=== PATIENT | male | born 1970 | race Caucasian/White ===

== ENCOUNTER 2017-07-03 20:07 | Emergency (ER) | payer OTHER, MEDICAID ==
[~2017-07-03] VITALS: Ht 180.3 cm; Wt 77.6 kg
[2017-07-03 20:20] VITALS: BP 125/75
== END 2017-07-04 00:12 | disposition left against medical advice (07) ==
LOC: ER 20:07
DX: M54.9 Dorsalgia, unspecified (principal); G89.29 Other chronic pain; Z53.21 Procedure and treatment not carried out due to patient leaving prior to being seen by health care provider

== ENCOUNTER 2018-06-10 10:31 | Emergency (ER) | payer OTHER, MEDICAID ==
[~2018-06-10] VITALS: Ht 180.3 cm; Wt 71.7 kg
[2018-06-10 11:36] LABS: Basophils # (auto) 0 uL; Basophils % (auto) 1.1 % (0.0-2.0); Eosinophils # (auto) 0 uL; Hematocrit 48.5 % (41.0-53.0); Hemoglobin 16.5 g/dL (13.5-17.5); Lymphocytes # (auto) 0.5 uL; Lymphocytes % (auto) 13.9 % (10.0-50.0); Mean Corpuscular Hemoglobin 31.7 pg (28.0-32.0); Mean Corpuscular Hgb Conc. 34.1 g/dL (32.0-36.0); Mean Corpuscular Volume 93.2 fL (80.0-100.0); Monocytes # (auto) 0.1 uL; Monocytes % (auto) 4.3 % (0.0-12.0); Neutrophils # (auto) 2.6 uL; Neutrophils % (auto) 79.7 % (37.0-80.0); Nucleated Red Blood Cells % 0.4 %; Platelet Count (auto) 194 10^3/uL (140-450); Red Blood Cells 5.21 10^6/uL (4.5-5.90); Red Cell Distribution Width 14.7 % (11.8-14.3); White Blood Cell 3.3 10^3/uL (4.4-10.8)
[2018-06-10 11:47] LABS: Albumin 4.5 g/dL (3.4-5.0); Anion Gap 7 (5-15); Blood Urea Nitrogen 7 mg/dL (7-18); Calcium 9.2 mg/dL (8.5-10.1); Carbon Dioxide 30 mmol/L (21-32); Chloride 100 mmol/L (98-107); Glucose 101 mg/dL (74-106); Potassium 4.3 mmol/L (3.5-5.1); Sodium 137 mmol/L (136-145)
[2018-06-10] MEDS ORDERED: SODIUM CHLORIDE 0.9% 1,000 ML IV ONE (12:04)
[2018-06-10 12:05] LABS: Alanine Aminotransferase 24 U/L (16-61); Alkaline Phosphatase 41 U/L (45-117); Aspartate Aminotransferase 23 U/L (15-37); BUN/Creatinine Ratio 7.5; Bilirubin, Total 0.4 mg/dL (0.2-1.0); GFR African American 112 mL/min; GFR Non-African American 93 mL/min; Total Protein 8.7 g/dL (6.4-8.2)
[2018-06-10 12:58] LABS: Alcohol, Urine < 3.0 mg/dL (0-5); Amphetamine Screen, Urine POSITIVE (NEGATIVE); Barbiturate Scree,Urine POSITIVE (NEGATIVE); Benzodiazephine Screen, Urine POSITIVE (NEGATIVE); Cannabinoid Screen, Urine NEGATIVE (NEGATIVE); Cocaine Screen, Urine NEGATIVE (NEGATIVE); Opiate Scree,Urine NEGATIVE (NEGATIVE); Phencyclidine Screen, Urine NEGATIVE (NEGATIVE)
[2018-06-10 15:24] VITALS: BP 122/55
== END 2018-06-10 16:04 | disposition home or self-care (01) ==
LOC: ER 10:31 → EDBD 10:31 → ER 16:04
DX: R07.89 Other chest pain (principal); F41.1 Generalized anxiety disorder; F15.10 Other stimulant abuse, uncomplicated; I10 Essential (primary) hypertension; E07.89 Other specified disorders of thyroid; Z88.0 Allergy status to penicillin; Z90.89 Acquired absence of other organs
CPT/HCPCS: 36415; 71046; 80053; 80307; 83735; 84443; 84484; 85025; 93005; 99285; J7030

== ENCOUNTER 2019-07-07 15:06 | Emergency (ER) | payer OTHER, MEDICAID ==
[~2019-07-07] VITALS: Ht 180.3 cm; Wt 81.6 kg
[2019-07-07 16:21] LABS: Basophils # (auto) 0 uL; Basophils % (auto) 0.7 % (0.0-2.0); Eosinophils # (auto) 0 uL; Hematocrit 43.5 % (41.0-53.0); Hemoglobin 14.8 g/dL (13.5-17.5); Lymphocytes # (auto) 0.6 uL; Lymphocytes % (auto) 10.6 % (10.0-50.0); Mean Corpuscular Hemoglobin 31.4 pg (28.0-32.0); Mean Corpuscular Volume 92.3 fL (80.0-100.0); Monocytes # (auto) 0.3 uL; Monocytes % (auto) 4.6 % (0.0-12.0); Neutrophils # (auto) 4.8 uL; Neutrophils % (auto) 84.1 % (37.0-80.0); Platelet Count (auto) 193 10^3/uL (140-450); Red Blood Cells 4.71 10^6/uL (4.5-5.90); White Blood Cell 5.7 10^3/uL (4.4-10.8)
[2019-07-07 16:25] VITALS: BP 141/81
[2019-07-07] MEDS ORDERED: AMITRIPTYLINE HCL 10 MG TAB PO ONE (17:00)
[2019-07-07 17:05] LABS: Calcium 8.7 mg/dL (8.5-10.1); Chloride 106 mmol/L (98-107); Potassium 4.1 mmol/L (3.5-5.1); Sodium 140 mmol/L (136-145)
[2019-07-07 17:14] LABS: Alanine Aminotransferase 34 U/L (16-61); Albumin 4.1 g/dL (3.4-5.0); Alkaline Phosphatase 36 U/L (45-117); Anion Gap 7 (5-15); Aspartate Aminotransferase 26 U/L (15-37); BUN/Creatinine Ratio 12.4; Bilirubin, Total 0.3 mg/dL (0.2-1.0); Blood Urea Nitrogen 12 mg/dL (7-18); Carbon Dioxide 27 mmol/L (21-32); GFR African American 106 mL/min; GFR Non-African American 88 mL/min; Glucose 107 mg/dL (74-106); Magnesium 2.6 mg/dL (1.6-2.6); Total Protein 7.8 g/dL (6.4-8.2)
[2019-07-07] MEDS ORDERED: AMITRIPTYLINE HCL 25 MG TAB PO ONE (17:15)
== END 2019-07-07 17:55 | disposition home or self-care (01) ==
LOC: ER 15:11
DX: F41.9 Anxiety disorder, unspecified (principal); F19.10 Other psychoactive substance abuse, uncomplicated; F32.9 Major depressive disorder, single episode, unspecified; I10 Essential (primary) hypertension; E07.9 Disorder of thyroid, unspecified
CPT/HCPCS: 36415; 70450; 80053; 83735; 84484; 85025; 93005

== ENCOUNTER 2025-05-24 12:32 | Emergency (ER) | payer OTHER, MEDICAID ==
[~2025-05-24] VITALS: Ht 180.3 cm; Wt 77.3 kg
--- NOTE | 2025-05-24 13:36 | ED.PDOC ---
History of Present Illness HPI Comments A 54 YEAR OLD FEMALE PRESENTS TO THE ED WITH COMPLAINT OF ANXIETY AND PALPITATIONS. PATIENT STATES HE HAS A HISTORY OF ANXIETY AND PANIC ATTACKS AND NOTES IT HAS BEEN WORSE FOR THE PAST 2 DAYS. PATIENT REPORTS HE IS CURRENTLY EXPERIENCING INCREASING ANXIETY AND HEART PALPITATIONS AND FEELS LIKE HE CAN NOT CALM HIMSELF DOWN. THE PATIENT NOTES HE HAS ALSO BEEN UNABLE TO SLEEP DUE TO HIS ANXIETY. PATIENT DENIES SI, HI, FEVER, CHILLS, SHORTNESS OF BREATH, CHEST PAIN, ABDOMINAL PAIN, NAUSEA, VOMITING, HEADACHE, OR OTHER COMPLAINTS. NO OTHER SYMPTOMS OR MODIFYING FACTORS AT THIS TIME. PATIENT IS ALERT, ORIENTED X 4, AND HAS STEADY GAIT. Chief Complaint: Anxiety Time Seen by MD: 12:44 Primary Care Provider: UNKNOWN Reviewed Notes: Nurses Notes, Medications, Allergies Allergies: Coded Allergies: Propranolol (Verified Allergy, Severe, 04/23/15) Penicillins (Verified Allergy, Unknown, 04/23/15) Information Source: Patient Mode of Arrival: Ambulatory Severity: Moderate Timing: Days Duration: Since onset, Days Prehospital treatment: None Medication Refill: For: Other (ANXIETY AND PALPITATIONS) Past Medical History PAST MEDICAL HISTORY: Anxiety, Depression, HTN, Thyroid Surgical History: Thyroidectomy Family History Family History: Reviewed,noncontributory to illness Social History Smoker: Non-Smoker Alcohol: Denies ETOH Use Drugs: Denies Drug Use Lives In: Home Constitutional: reports: others (ANXIOUS ); denies: chills, diaphoresis, fatigue, fever, malaise, sweats, weakness EENTM: denies: blurred vision, double vision, ear bleeding, ear discharge, ear drainage, ear pain, ear ringing, eye pain, eye redness, hearing loss, mouth pain, mouth swelling, nasal discharge, nose bleeding, nose congestion, nose pain, photophobia, tearing, throat pain, throat swelling, voice changes, others Respiratory: denies: cough, hemoptysis, orthopnea, SOB at rest, shortness of breath, SOB with excertion, stridor, wheezing, others Cardiovascular: reports: palpitations; denies: chest pain, dizzy spells, diaphoresis, Dyspnea on exertion, edema, irregular heart beat, left arm pain, lightheadedness, PND, syncope, others Gastrointestinal: denies: abdomen distended, abdominal pain, blood streaked bowels, constipated, diarrhea, dysphagia, difficulty swallowing, hematemesis, melena, nausea, poor appetite, poor fluid intake, rectal bleeding, rectal pain, vomiting, others Genitourinary: denies: burning, dysuria, flank pain, frequency, hematuria, incontinence, penile discharge, penile sore, pain, testicle pain, testicle swelling, urgency, others Neurological: reports: tingling; denies: dizziness, fainting, headache, left sided numbness, left sided weakness, numbness, paresthesia, pre-existing deficit, right sided numbness, right sided weakness, seizure, speech problems, tremors, weakness, others Musculoskeletal: denies: back pain, gout, joint pain, joint swelling, muscle pain, muscle stiffness, neck pain, others Integumetry: denies: bruises, change in color, change in hair/nails, dryness, laceration, lesions, lumps, rash, wounds, others Allergic/Immunocompromised: denies: Difficulty Healing, Frequent Infections, Hives, Itching, others Hematologic/Lymphatic: denies: anemia, blood clots, easy bleeding, easy bruisi ng, swollen glands, others Endocrine: denies: excessive hunger, excessive sweating, excessive thirst, exce ssive urination, flushing, intolerance to cold, intolerance to heat, unexplained weight gain, unexplained weight loss, others Psychiatric: reports: anxiety; denies: bipolar disorder, depression, hopeless, panic disorder, schizophrenia, sleepless, suicidal, others All Other Systems: Reviewed and Negative Physical Exam General Appearance: Mild Distress, Normal, Other (ANXIOUS ) HEENT: Normal ENT Inspection, PERRL/EOMI, Pharynx Normal, TMs Normal Neck: Full Range of Motion, Non-Tender, Normal, Normal Inspection Respiratory: Chest Non-Tender, Lungs Clear, No Accessory Muscle Use, No Respiratory Distress, Normal Breath Sounds Cardiovascular: No Edema, No JVD, No Murmur, No Gallop, Normal Peripheral Pulses, Regular Rate/Rhythm Breast Exam: Deferred Gastrointestinal: No Organomegaly, Non Tender, No Pulsatile Mass, Normal Bowel Sounds, Soft Genitalia: Deferred Pelvic: Deferred Rectal: Deferred Extremities: No calf tenderness, Normal capillary refill, Normal inspection, Normal range of motion, Non-tender, No pedal edema Musculoskeletal : Apperance: Normal Neurologic: Alert, therapy manager II-XII nml as Tested, No Motor Deficits, Normal Affect, Normal Mood, No Sensory Deficits Cerebellar Function: Normal Reflexes: Normal Skin: Dry, Normal Color, Warm Peripheral Pulses: 2+ carotid (R), 2+ carotid (L) Lymphatic: No Adenopathy Was a procedure done? Was a procedure done?: No EKG EKG : Pulse Rate (adult): 88 [place]: Normal Cardiac Rhythm: NSR Block: None Hypertrophy: None ST: Normal Differential Dx Considerations may include: ANXIETY REACTION, HYPERVENTILATION SYNDROME, PALPITATIONS, WELL CHECK, ELECTROLYTE IMBALANCE, VT X-Ray, Labs, Meds, VS Vital Signs Date Time Temp Pulse Resp B/P (MAP) Pulse Ox O2 Delivery O2 Flow Rate FiO2 05/24/25 14:19 97.4 95 16 120/91 (101) 95 97.4 05/24/25 14:19 94 16 95 Room Air 05/24/25 13:52 88 05/24/25 13:49 88 05/24/25 12:36 98.3 104 18 121/87 97 98.3 Lab Test 05/24/25 13:32 Range/Units White Blood Count 5.0 4.4-10.8 10^3/uL Red Blood Count 4.51 4.5-5.90 10^6/uL Hemoglobin 15.0 13.5-17.5 g/dL Hematocrit 43.2 41.0-53.0 % Mean Corpuscular Volume 96.0 80.0-100.0 fL Mean Corpuscular Hemoglobin 33.2 H 28.0-32.0 pg Mean Corpuscular Hemoglobin Concent 34.6 32.0-36.0 g/dL Red Cell Distribution Width 14.3 11.8-14.3 % Platelet Count 187 140-450 10^3/uL Mean Platelet Volume 7.2 6.9-10.8 fL Neutrophils (%) (Auto) 78.6 37.0-80.0 % Lymphocytes (%) (Auto) 14.6 10.0-50.0 % Monocytes (%) (Auto) 5.4 0.0-12.0 % Eosinophils (%) (Auto) 0.3 0.0-7.0 % Basophils (%) (Auto) 1.1 0.0-2.0 % Neutrophils # (Auto) 3.9 1.6-8.6 10 ^3/uL Lymphocytes # (Auto) 0.7 0.4-5.4 10 ^3/uL Monocytes # (Auto) 0.3 0-1.3 10 ^3/uL Eosinophils # (Auto) 0 0-0.8 10 ^3/uL Basophils # (Auto) 0.1 0-0.2 10 ^3/uL Nucleated Red Blood Cells 0.1 % Sodium Level 142 136-145 mmol/L Potassium Level 4.0 3.5-5.1 mmol/L Chloride Level 106 98-107 mmol/L Carbon Dioxide Level 27 20-31 mmol/L Anion Gap 9 5-15 Blood Urea Nitrogen 15 9-23 mg/dL Creatinine 1.17 0.700-1.30 mg/dL Glomerular Filtration Rate Calc 74 >90 mL/min BUN/Creatinine Ratio 12.8 10.0-20.0 Serum Glucose 102 74-106 mg/dL Calcium Level 8.9 8.7-10.4 mg/dL Troponin I High Sensitivity 3 L </=54 ng/L Current Medications Medications (Trade) Dose Ordered Sig/Mars Route Start Time Stop Time Status Last Admin Lorazepam (Ativan Tablet) 1 mg ONCE ONCE PO 05/24/25 13:30 05/24/25 13:31 DC 05/24/25 13:39 X-Ray, Labs, Meds, VS Comment EXTERNAL MEDICAL RECORDS REVIEWED: [NONE] INDEPENDENT HISTORIANS: [NONE] SOCIAL DETERMINANTS OF HEALTH: [NONE] LABS ORDERED: CBC, BMP, TROPONIN REVIEWED AND INTERPRETED RESULTS: NORMAL IMAGING ORDERED: NONE TREATMENTS ORDERED: ATIVAN 1 MG P.O. PROCEDURES PERFORMED: NONE CRITICAL CARE TIME: NONE I HAVE DISCUSSED THE PATIENT WITH THE ATTENDING PHYSICIAN DR. LESLIE AND HE AGREES WITH THE PATIENT'S PLAN OF CARE AND DISPOSITION. BASED ON HISTORY OF PRESENT ILLNESS, AND PHYSICAL EXAM, PATIENT WILL BE DISCHARGED HOME. PT HAS ATIVAN AT HOME FROM HIS PCP 05/20/25. SHARED DECISION MAKING: PATIENT INSTRUCTED TO FOLLOW UP WITH PRIMARY CARE PROVIDER IN 1-2 DAYS FOR RE-EVALUATION OF SYMPTOMS. PATIENT VERBALIZES UNDERSTANDING TO RETURN TO ED FOR NEW OR WORSENING SYMPTOMS OR IF FOLLOW UP WITH PCP CANNOT BE OBTAINED. PATIENT FEELS COMFORTABLE GOING HOME AT THIS TIME. ALL QUESTIONS ADDRESSED AT TIME OF DISCHARGE. Time of 1ST Reevaluation: 14:33 Reevaluation 1ST: Improved Patient Education/Counseling: Diagnosis, Treatment, Need For Follow Up Family Education/Counseling: Diagnosis, Treatment, Need For Follow Up Medical Screening: No EMC Exist At This Time SEPSIS Sepsis Screen Date sepsis recognized/suspect: May 24, 2025 Time Sepsis recognized/suspect: 1235 Recent Procedure: No On Antibiotic Therapy: No Respiratory Rate >20: No Heart Rate >90: Yes Temp<36 C (96.8 F) or >38.3 C: No SBP <90 or MAP <65 mmHG: No New Acute Mental Status Change: No Is the patient on CPAP, BIPAP,: No Vital Signs Date Time Temp Pulse Resp B/P (MAP) Pulse Ox O2 Delivery O2 Flow Rate FiO2 05/24/25 14:19 97.4 95 16 120/91 (101) 95 97.4 05/24/25 14:19 94 16 95 Room Air 05/24/25 13:52 88 05/24/25 13:49 88 05/24/25 12:36 98.3 104 18 121/87 97 98.3 Laboratory Tests Test 05/24/25 13:32 White Blood Count 5.0 10^3/uL (4.4-10.8) Medications Medications Dose Ordered Sig/Mars Route Start Time Stop Time Status Last Admin Dose Admin Lorazepam 1 mg ONCE ONCE PO 05/24/25 13:30 05/24/25 13:31 DC 05/24/25 13:39 Departure 1 Departure Time of Disposition: 14:34 Impression: Primary Impression: Anxiety reaction Disposition: 01 HOME / SELF CARE / HOMELESS Condition: Stable Additional Instructions: FOLLOW-UP WITH PCP IN 1 TO 2 DAYS. TAKE MEDICATIONS PRESCRIBED. RETURN TO ED FOR ANY NEW OR WORSENING SYMPTOMS. Discharged With: Self Critical Care Note Critical Care Time?: No Stability Stability form required: No I personally scribed for FRANK LAST ([email or web address]) on 05/24/25 at 13:36. Elect ronically submitted by Kee [employer] ([email or web address]). I personally scribed for FRANK LAST ([email or web address]) on 05/24/25 at 13:50. Electr onically submitted by Kee Turk ([email or web address]). I personally scribed for FRANK LAST ([email or web address]) on 05/24/25 at 13:52. Electro nically submitted by Kee Turk ([email or web address]). I personally scribed for FRANK LAST ([email or web address]) on 05/24/25 at 14:22. Electron ically submitted by [employer] ([email or web address]). I personally scribed for FRANK LAST ([email or web address]) on 05/24/25 at 14:28. Electronically submitted by [employer] ([email or web address]). I personally scribed for FRANK LAST ([email or web address]) on 05/24/25 at 14:29. Electronically submitted by Kee [employer] ([email or web address]). FRANK LAST May 24, 2025 13:36
[2025-05-24] MEDS: LORazepam 0.5 MG TAB PO ONE (13:39)
[2025-05-24 13:48] LABS: Hematocrit 43.2 % (41.0-53.0); Hemoglobin 15.0 g/dL (13.5-17.5); Mean Corpuscular Hemoglobin 33.2 pg (28.0-32.0); Mean Corpuscular Volume 96.0 fL (80.0-100.0); Nucleated Red Blood Cells % 0.1 %
[2025-05-24 13:59] LABS: Chloride 106 mmol/L (98-107); Potassium 4.0 mmol/L (3.5-5.1); Sodium 142 mmol/L (136-145)
[2025-05-24 14:00] LABS: Anion Gap 9 (5-15); Carbon Dioxide 27 mmol/L (20-31)
[2025-05-24 14:01] LABS: Calcium 8.9 mg/dL (8.7-10.4)
[2025-05-24 14:06] LABS: BUN/Creatinine Ratio 12.8 (10.0-20.0); Blood Urea Nitrogen 15 mg/dL (9-23); Glucose 102 mg/dL (74-106)
[2025-05-24 14:19] VITALS: BP 120/91; PULSE 94; RESP 16; TEMP 97.4; O2SAT 95
[2025-05-24] MEDS ORDERED: DIA5T PO (14:29)
--- NOTE | 2025-05-24 14:30 | ECG ---
[facility] Test Date: 2025-05-24 Test Time: 13:47:49 Pat Name: FLAVIA CHINO Department: [facility] ED Patient ID: [id number] Room: Gender: M Applied Anthropologist: MONA : 1970 Requested By: FRANK LAST Order Number: [id number] Reading MD: Buddy Lui Measurements Intervals [place] Rate: 88 P: 28 [place]: 191 QRS: 48 QRSD: 89 T: -22 QT: 374 QTc: 453 Interpretive Statements Sinus rhythm Nonspecific T abnormalities, inferior leads Electronically Signed On 05-30-2025 21:48:20 PDT by Buddy Lui Please click the below link to view image of tracing.
== END 2025-05-24 14:42 | disposition home or self-care (01) ==
LOC: ER 12:32
DX: F41.1 Generalized anxiety disorder (principal); F32.A Depression, unspecified; I10 Essential (primary) hypertension; Z90.89 Acquired absence of other organs; Z88.0 Allergy status to penicillin
CPT/HCPCS: 36415; 80048; 84484; 85025; 93005